=== PATIENT | male | born 1990 | race American Indian/Alaskan Native ===

== ENCOUNTER 2017-11-30 17:30 | Emergency (ER) | payer OTHER ==
[2017-11-30 17:35] VITALS: BP 150/81
--- NOTE | 2017-11-30 20:58 | Emergency Department Report ---
ED Headache HPI - General Chief Complaint: Headache Stated Complaint: HEADACHE Time Seen by Provider: 11/30/17 20:03 - History of Present Illness Initial Comments: This 27-year-old black male who is coming in with a mild headache for the last several days. The patient denies any light sensitivity and nausea vomiting. Patient's blood pressure is slightly elevated. Patient denies any chest pain shortness of breath fevers chills nausea vomiting. Patient states his global headache no radiation into the neck arms. Patient also denies any fever nausea vomiting diarrhea. Allergies/Adverse Reactions: Allergies No Known Allergies Allergy (Unverified 11/30/17 17:32) Home Medications: Ambulatory Orders Lisinopril/Hydrochlorothiazide [Zestoretic 10-12.5 mg Tablet] 1 each PO DAILY # 30 tablet 11/30/17 ED Review of Systems ROS: Stated complaint: HEADACHE Other details as noted in HPI Comment: All other systems reviewed and negative ED Past Medical Hx - Past Medical History Previous Medical History?: No - Surgical History Past Surgical History?: No - Medications Home Medications: Home Medications Medication Instructions Recorded Confirmed Last Taken Type Lisinopril/Hydrochlorothiazide 1 each PO DAILY #30 tablet 11/30/17 Unknown Rx [Zestoretic 10-12.5 mg Tablet] ED Physical Exam - General Limitations: No Limitations General appearance: alert, in no apparent distress - Head Head exam: Present: atraumatic, normocephalic - Eye Eye exam: Present: normal appearance - ENT ENT exam: Present: mucous membranes moist - Neck Neck exam: Present: normal inspection - Respiratory Respiratory exam: Present: normal lung sounds bilaterally. Absent: respiratory distress - Cardiovascular Cardiovascular Exam: Present: regular rate, normal rhythm. Absent: systolic murmur, diastolic murmur, rubs, gallop - GI/Abdominal GI/Abdominal exam: Present: soft, normal bowel sounds - Rectal Rectal exam: Present: deferred - Extremities Exam Extremities exam: Present: normal inspection - Back Exam Back exam: Present: normal inspection - Neurological Exam Neurological exam: Present: alert, oriented X3 - Psychiatric Psychiatric exam: Present: normal affect, normal mood - Skin Skin exam: Present: warm, dry, intact, normal color. Absent: rash ED Course Vital Signs 11/30/17 17:33 Temperature 98.5 F Pulse Rate 70 Respiratory 18 Rate Blood Pressure 150/81 O2 Sat by Pulse 100 Oximetry Critical care attestation.: If time is entered above; I have spent that time in minutes in the direct care of this critically ill patient, excluding procedure time. ED Disposition Clinical Impression: Hypertensive urgency Disposition: DC-01 TO HOME OR SELFCARE Is pt being admited?: No Does the pt Need Aspirin: No Condition: Stable Instructions: Hypertension (ED) Prescriptions: Lisinopril/Hydrochlorothiazide [Zestoretic 10-12.5 mg Tablet] 1 each PO DAILY # 30 tablet Referrals: [facility] [Outside] - 3-5 Days
== END 2017-11-30 21:05 | disposition home or self-care (01) ==
LOC: ED 17:30
DX: I16.0 Hypertensive urgency (principal)
CPT/HCPCS: 99282

== ENCOUNTER 2018-10-17 16:04 | Emergency (ER) | payer OTHER ==
[2018-10-17 16:18] VITALS: BP 151/55
[2018-10-17] MEDS ORDERED: NACL 0.9% 1000 ML 1,000 ML IV ONE (16:27)
[2018-10-17] MEDS ORDERED: ZOFRAN IV ONE (16:27)
--- NOTE | 2018-10-17 16:28 | Emergency Department Report ---
ED N/V/D HPI - General Chief complaint: Nausea/Vomiting/Diarrhea Stated complaint: NAUSEA/DIARRHEA Time Seen by Provider: 10/17/18 16:26 Source: patient Mode of arrival: Ambulatory Limitations: No Limitations - History of Present Illness Initial comments: This is a 28-year-old male nontoxic, well nourished in appearance, no acute signs of distress presents to the ED with c/o of nausea and vomiting and diarrhea 1 day. Patient describes vomiting as food content. Stated last episode of vomit was last night. Patient denies any abdominal pain, chest pain, short of breath, fever, chills, headache, stiff neck, numbness or tingling. Patient denies any constipation. Patient denies any recent travels. Patient denies any drug allergies significant past medical history. MD complaint: nausea, vomiting, diarrhea -: days(s) (1) Description of Vomiting: food contents Associated Abdominal Pain: No Radiation: none Pain Scale: 0 Consistency: now resolved Improves with: none Worsens with: none Associated Symptoms: nausea/vomiting. denies: myalgias, chest pain, cough, diaphoresis, fever/chills, headaches, loss of appetite, malaise, rash, dysuria, shortness of breath, syncope, weakness - Related Data Previous Rx's Medication Instructions Recorded Last Taken Type Lisinopril/Hydrochlorothiazide 1 each PO DAILY #30 tablet 11/30/17 Unknown Rx [Zestoretic 10-12.5 mg Tablet] Ibuprofen [Motrin] 600 mg PO Q8H PRN #20 tablet 10/17/18 Unknown Rx Ondansetron [Zofran Odt] 4 mg PO Q8HR PRN #20 tab.rapdis 10/17/18 Unknown Rx Allergies Allergy/AdvReac Type Severity Reaction Status Date / Time No Known Allergies Allergy Verified 10/17/18 16:14 ED Review of Systems ROS: Stated complaint: NAUSEA/DIARRHEA Other details as noted in HPI Constitutional: denies: chills, fever Eyes: denies: eye pain, eye discharge, vision change ENT: denies: ear pain, throat pain Respiratory: denies: cough, shortness of breath, wheezing Cardiovascular: denies: chest pain, palpitations Endocrine: no symptoms reported Gastrointestinal: nausea, vomiting, diarrhea. denies: abdominal pain, constipation Genitourinary: denies: urgency, dysuria Musculoskeletal: denies: back pain, joint swelling, arthralgia Skin: denies: rash, lesions Neurological: denies: headache, weakness, paresthesias Psychiatric: denies: anxiety, depression Hematological/Lymphatic: denies: easy bleeding, easy bruising ED Past Medical Hx - Past Medical History Previous Medical History?: No - Surgical History Past Surgical History?: Yes - Social History Smoking Status: Never Smoker Substance Use Type: None - Medications Home Medications: Home Medications Medication Instructions Recorded Confirmed Last Taken Type Lisinopril/Hydrochlorothiazide 1 each PO DAILY #30 tablet 11/30/17 Unknown Rx [Zestoretic 10-12.5 mg Tablet] Ibuprofen [Motrin] 600 mg PO Q8H PRN #20 tablet 10/17/18 Unknown Rx Ondansetron [Zofran Odt] 4 mg PO Q8HR PRN #20 tab.rapdis 10/17/18 Unknown Rx ED Physical Exam - General Limitations: No Limitations General appearance: alert, in no apparent distress - Head Head exam: Present: atraumatic, normocephalic - Eye Eye exam: Present: normal appearance - Neck Neck exam: Present: normal inspection, full ROM - Respiratory Respiratory exam: Present: normal lung sounds bilaterally. Absent: respiratory distress, wheezes, rales, rhonchi, stridor, chest wall tenderness, accessory muscle use, decreased breath sounds, prolonged expiratory - Cardiovascular Cardiovascular Exam: Present: regular rate, normal rhythm, normal heart sounds. Absent: bradycardia, tachycardia, irregular rhythm, systolic murmur, diastolic murmur, rubs, gallop - GI/Abdominal GI/Abdominal exam: Present: soft, normal bowel sounds. Absent: distended, tenderness, guarding, rebound, rigid, diminished bowel sounds - Expanded GI/Abdominal Exam Expanded GI/Abdominal exam: Absent: psoas sign, Kaminski's sign, Rovsing's sign, tenderness at Mcburney's Point, ascites - Extremities Exam Extremities exam: Present: normal inspection, full ROM - Back Exam Back exam: Present: normal inspection, full ROM - Neurological Exam Neurological exam: Present: alert, oriented X3 - Psychiatric Psychiatric exam: Present: normal affect, normal mood - Skin Skin exam: Present: warm, dry, intact, normal color. Absent: rash ED Course Vital Signs 10/17/18 16:14 Temperature 97.8 F Pulse Rate 74 Respiratory 16 Rate Blood Pressure 151/55 O2 Sat by Pulse 100 Oximetry - Reevaluation(s) Reevaluation #1: 10/17/18 18:03 Patient is speaking in full sentences with no signs of distress noted. ED Medical Decision Making - Lab Data Result diagrams: 10/17/18 16:56 10/17/18 16:56 - Medical Decision Making This is a 28-year-old male that presents with nausea and vomiting. Patient is stable and was examined by me. There is no abdominal tenderness. Negative signs of symptoms of appendicitis. Labs obtained. xray abdomen xray obtained and dictated by the radiologist. Patient is notified of the report with no questions noted by the patient. Vital signs are stable prior to discharge. Patient received Zofran and 1L Normal saline in the ED which patient stated symptoms has resovled and subsided. A by mouth challenge has been obtained and patient tolerated well with no nausea vomiting. Patient was notified of strict precautions of appendicitis symptoms and to return to the ED if symptoms occurs as soon as possible. Patient was also instructed to Follow-up with a primary care doctor in 3-5 days or if symptoms worsen and continue return to emergency room as soon as possible. At time of discharge, the patient does not seem toxic or ill in appearance. No acute signs of distress noted. Patient agrees to discharge treatment plan of care. No further questions noted by the patient. Critical care attestation.: If time is entered above; I have spent that time in minutes in the direct care of this critically ill patient, excluding procedure time. ED Disposition Clinical Impression: Nausea vomiting and diarrhea Disposition: DC-01 TO HOME OR SELFCARE Is pt being admited?: No Does the pt Need Aspirin: No Condition: Stable Instructions: Acute Nausea and Vomiting (ED) Additional Instructions: Follow-up with a primary care doctor in 3-5 days or if symptoms worsen and continue return to emergency room as soon as possible. Prescriptions: Ibuprofen [Motrin] 600 mg PO Q8H PRN #20 tablet PRN Reason: Pain Ondansetron [Zofran Odt] 4 mg PO Q8HR PRN #20 tab.rapdis PRN Reason: Nausea Referrals: JOSEPH KERN DO [Primary Care Provider] - 3-5 Days PRIMARY CAREMD [Referring] - 3-5 Days ZOEY SALDAÑA MD [Staff Physician] - 3-5 Days [facility] [Outside] - 3-5 Days Forms: Work/School Release Form(ED)
[2018-10-17 17:11] LABS: Hematocrit 45.1 % (35.5-45.6); Hemoglobin 15.1 gm/dl (11.8-15.2); Mean Corpuscular HGB Conc 34 % (32-34); Mean Corpuscular Volume 84 fl (84-94); Platelet Count 148 K/mm3 (140-440); Red Blood Count 5.35 M/mm3 (3.65-5.03); Red Cell Distribution Width 13.9 % (13.2-15.2)
--- NOTE | 2018-10-17 17:16 | XRay Report ---
FINAL REPORT EXAM: XR ABDOMEN 2V HISTORY: nausea/vomiting TECHNIQUE: Frontal views of the abdomen and pelvis in the supine and upright positions. Comparison: None FINDINGS: The bowel gas pattern is nonobstructive with air in nondistended loops of bowel. There is no evidence of pneumoperitoneum nor organomegaly. The bony structures are notable for levocurvature of the lumbar spine. IMPRESSION: 1. No plain film evidence of an acute intra-abdominal process. If there is a clinical suspicion of an acute intra-abdominal process, CT abdomen and pelvis may be he lpful. 2. Levocurvature lumbar spine.
[2018-10-17 17:46] LABS: Alanine Aminotransferase 56 units/L (7-56); Albumin 4.4 g/dL (3.9-5); BUN/Creatinine Ratio 12; Blood Urea Nitrogen 11 mg/dL (9-20); Calcium 9.3 mg/dL (8.4-10.2); Hemolysis Index 5
[2018-10-17 17:50] LABS: Bilirubin,Direct < 0.2 mg/dL (0-0.2)
[2018-10-17 17:58] LABS: Anisocytosis Few; Basophils % (Manual) 0 % (0.0-1.8); Large Platelets Few; Ovalocytes Few; Platelet Estimate Consistent w Auto; Total Cells Counted 100
== END 2018-10-17 18:16 | disposition home or self-care (01) ==
LOC: ED 16:04
DX: R11.2 Nausea with vomiting, unspecified (principal); R19.7 Diarrhea, unspecified
CPT/HCPCS: 36415; 74019; 80048; 80076; 83690; 85007; 85025; 96361; 96374; 99284; J2405; J7030

== ENCOUNTER 2019-01-24 16:12 | Emergency (ER) | payer OTHER ==
[2019-01-24] MEDS ORDERED: PERCOCET 5/325 PO STA (18:50)
[2019-01-24] MEDS ORDERED: TORADOL IM STA (18:50)
--- NOTE | 2019-01-24 20:44 | XRay Report ---
PROCEDURE: XR CHEST ROUTINE 2V HISTORY: cough and chest pain FINDINGS: Frontal and lateral views the chest were acquired. The heart is normal in size. The lungs a ppear clear. The pleura and mediastinum are within normal limits. IMPRESSION: No active disease in the chest This document is electronically signed by Riley Tracy MD., January 24 2019 08:42:20 PM ET
--- NOTE | 2019-01-24 21:40 | Emergency Department Report ---
- General Chief Complaint: Upper Respiratory Infection Stated Complaint: COLD LIKE SYM Time Seen by Provider: 01/24/19 17:56 Source: patient Mode of arrival: Ambulatory Limitations: No Limitations - History of Present Illness Initial Comments: 28-year-old male to emergency Department complaining of a four- day history of cough, congestion, coryza, myalgias and headaches. Occasional sputum production as well. No hemoptysis, no hematemesis, hematochezia. No vomiting, no dysuria. States that he has coughing spells with his condition overall this is slowly worsening MD Complaint: cough, sore throat, rhinorrhea, nasal congestion -: Gradual Severity: mild Severity scale (0 -10): 4 Quality: dull Consistency: constant Improves With: nothing Worsens With: nothing Associated Symptoms: rhinorrhea, nasal congestion. denies: myalgias, diaphoresis, chest pain, shortness of breath, abdominal pain, diarrhea, dysuria, confusion, right sweats, weight loss, hoarseness - Related Data Previous Rx's Medication Instructions Recorded Last Taken Type Lisinopril/Hydrochlorothiazide 1 each PO DAILY #30 tablet 11/30/17 Unknown Rx [Zestoretic 10-12.5 mg Tablet] Ibuprofen [Motrin] 600 mg PO Q8H PRN #20 tablet 10/17/18 Unknown Rx Ondansetron [Zofran Odt] 4 mg PO Q8HR PRN #20 tab.rapdis 10/17/18 Unknown Rx ALBUTEROL Inhaler (OR & NICU) 1 puff IH Q4-6H PRN #1 inha 01/24/19 Unknown Rx [ProAir HFA Inhaler] Amoxicillin [Amoxicillin TAB] 875 mg PO BID #20 tablet 01/24/19 Unknown Rx guaiFENesin/CODEINE [Robitussin AC] 5 ml PO Q6H PRN #120 ml 01/24/19 Unknown Rx Allergies Allergy/AdvReac Type Severity Reaction Status Date / Time No Known Allergies Allergy Verified 10/17/18 16:14 ED Review of Systems ROS: Stated complaint: COLD LIKE SYM Other details as noted in HPI Constitutional: denies: chills, fever Eyes: denies: eye pain, eye discharge, vision change ENT: denies: ear pain, throat pain Respiratory: denies: cough, shortness of breath, wheezing Cardiovascular: denies: chest pain, palpitations Endocrine: no symptoms reported Gastrointestinal: denies: abdominal pain, nausea, diarrhea Genitourinary: denies: urgency, dysuria Musculoskeletal: denies: back pain, joint swelling, arthralgia Skin: denies: rash, lesions Neurological: denies: headache, weakness, paresthesias Psychiatric: denies: anxiety, depression Hematological/Lymphatic: denies: easy bleeding, easy bruising ED Past Medical Hx - Past Medical History Previous Medical History?: No - Surgical History Past Surgical History?: Yes Additional Surgical History: right hand, - Social History Smoking Status: Never Smoker Substance Use Type: Alcohol - Medications Home Medications: Home Medications Medication Instructions Recorded Confirmed Last Taken Type Lisinopril/Hydrochlorothiazide 1 each PO DAILY #30 tablet 11/30/17 Unknown Rx [Zestoretic 10-12.5 mg Tablet] Ibuprofen [Motrin] 600 mg PO Q8H PRN #20 tablet 10/17/18 Unknown Rx Ondansetron [Zofran Odt] 4 mg PO Q8HR PRN #20 tab.rapdis 10/17/18 Unknown Rx ALBUTEROL Inhaler (OR & NICU) 1 puff IH Q4-6H PRN #1 inha 01/24/19 Unknown Rx [ProAir HFA Inhaler] Amoxicillin [Amoxicillin TAB] 875 mg PO BID #20 tablet 01/24/19 Unknown Rx guaiFENesin/CODEINE [Robitussin AC] 5 ml PO Q6H PRN #120 ml 01/24/19 Unknown Rx ED Physical Exam - General Limitations: No Limitations General appearance: alert, in no apparent distress - Head Head exam: Present: atraumatic, normocephalic - Eye Eye exam: Present: normal appearance, PERRL, EOMI Pupils: Present: normal accommodation - ENT ENT exam: Present: normal exam, mucous membranes moist - Neck Neck exam: Present: normal inspection, full ROM - Respiratory Respiratory exam: Present: normal lung sounds bilaterally. Absent: respiratory distress, rales, rhonchi, chest wall tenderness, accessory muscle use - Cardiovascular Cardiovascular Exam: Present: regular rate, normal rhythm. Absent: systolic murmur, diastolic murmur, rubs, gallop - GI/Abdominal GI/Abdominal exam: Present: soft, normal bowel sounds - Rectal Rectal exam: Present: deferred - Extremities Exam Extremities exam: Present: normal inspection - Back Exam Back exam: Present: normal inspection - Neurological Exam Neurological exam: Present: alert, oriented X3 - Psychiatric Psychiatric exam: Present: normal affect, normal mood - Skin Skin exam: Present: warm, dry, intact, normal color. Absent: rash ED Medical Decision Making - Radiology Data Radiology results: report reviewed (no acute processes) Critical care attestation.: If time is entered above; I have spent that time in minutes in the direct care of this critically ill patient, excluding procedure time. ED Disposition Clinical Impression: Cough, Pharyngitis Disposition: DC- TO HOME OR SELFCARE Is pt being admited?: No Does the pt Need Aspirin: No Condition: Stable Instructions: Upper Respiratory Infection (ED), Cold Symptoms (ED) Prescriptions: Amoxicillin [Amoxicillin TAB] 875 mg PO BID #20 tablet ALBUTEROL Inhaler (OR & NICU) [ProAir HFA Inhaler] 1 puff IH Q4-6H PRN #1 inha PRN Reason: Cough guaiFENesin/CODEINE [Robitussin AC] 5 ml PO Q6H PRN #120 ml PRN Reason: Cough Referrals: BONIFACIO MCCABE MD [Primary Care Provider] - 3-5 Days
[2019-01-24 21:44] VITALS: BP 119/67
== END 2019-01-24 21:50 | disposition home or self-care (01) ==
LOC: ED 16:12
DX: J02.9 Acute pharyngitis, unspecified (principal); R05 Cough
CPT/HCPCS: 71046; 96372; 99283; J1885